=== PATIENT | female | born 1985 | race African-American/Black ===

== ENCOUNTER 2019-10-29 08:13 | Emergency (ER) | payer OTHER ==
[~2019-10-29] VITALS: Ht 170.2 cm; Wt 110.2 kg
[~2019-10-29 08:13] MED LIST: APAP/CODEINE ELI5 M1 OR; AUGMENTIN 875875 MG PO; IBUPROFEN 600600 M1 PO; MEDROLDOSEPACK PO; MUCINEX TA600 MG/TA2; NAPROSYN500 MG PO; NOHOMEMEDICATIONS; NORCO 5-325 TA1 EACH PO; PROAIR HFA8.5 GM IH; PROMETHAZINE-C120 ML PO; TRAMADOL 50 MG50 MG PO; ZPAK PO
[2019-10-29] MEDS ORDERED: CEFDINIR300 MG PO (09:55)
[2019-10-29 10:15] VITALS: BP 116/81
== END 2019-10-29 10:15 | disposition home or self-care (01) ==
LOC: ER 08:13
DX: J01.00 Acute maxillary sinusitis, unspecified (principal); J02.9 Acute pharyngitis, unspecified; R19.7 Diarrhea, unspecified; R11.2 Nausea with vomiting, unspecified; F17.210 Nicotine dependence, cigarettes, uncomplicated